=== PATIENT | female | born 1960 | race Caucasian/White ===

== ENCOUNTER → 2018-06-07 | Outpatient (CLI) | payer OTHER ==
--- NOTE | 2018-06-07 11:12 | ECHOS ---
STRESS ECHOCARDIOGRAM DATE OF SERVICE: 06/07/2018 INDICATIONS: Chest pain. MEDICATIONS: BASELINE HEART RATE: 80 BASELINE BLOOD PRESSURE: 148/47 MAXIMUM HEART RATE: 154 MAXIMUM BLOOD PRESSURE: 219/147 85% MPHR: 137 100% MPHR: 164 METS: 6 MAXIMUM STAGE REACHED: I TOTAL EXERCISE TIME: 5 minutes CLINICAL INFORMATION: Baseline EKG shows sinus rhythm with poor R-wave progression. Patient exercised on Rafa protocol for a total of 5 minutes achieving 6 METs, 93% of predicted maximal heart rate without chest pain. At peak exercise there was 0.[address]-segment depression noted. Baseline echo shows off axis images and poor endocardial visualization. Contrast was used to improve endocardial enhancement. Baseline echo shows normal left ventricular size, wall motion and systolic function. Postexercise there is normal hyperdynamic response of all segments of myocardium noted. CONCLUSIONS: 1. Limited exercise tolerance. 2. Nondiagnostic EKG changes with exercise. 3. Negative stress echo. MMODL / IJN: [id number] /
== END | disposition home or self-care (01) ==
LOC: RADNMMAIN 09:43
PROVIDERS: ATTEND Family Medicine
DX: R07.2 Precordial pain (principal)
CPT/HCPCS: 93351; Q9950

== ENCOUNTER → 2020-12-10 | Outpatient (CLI) | payer BC | END | disposition home or self-care (01) | LOC: CPPFTMAIN 14:19 | PROVIDERS: ATTEND Internal Medicine Critical Care Medicine | DX: J44.9 Chronic obstructive pulmonary disease, unspecified (principal) | CPT/HCPCS: 94060; 94726; 94729 ==